=== PATIENT | male | born 2000 | race Caucasian/White ===

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

== ENCOUNTER 2024-03-29 12:51 | Emergency (ER) | payer OTHER, SELFPAY ==
[2024-03-29 12:51] VITALS: BP 140/86; PULSE 87; RESP 16; TEMP 37; O2SAT 98; BMI 20.9
[2024-03-29] MEDS: Amox/Clavulanate 875 MG Tablet PO (14:02)
== END 2024-03-29 14:03 | disposition home or self-care (01) ==
PROVIDERS: Emergency Provider Surgery; PCP Family Medicine; Visit Provider Surgery
DX: L02.215 Cutaneous abscess of perineum (principal)
CPT/HCPCS: 99282